=== PATIENT | female | born 1945 | race Asian ===

== ENCOUNTER → 2019-03-12 | Outpatient (CLI) | payer MEDICARE, BC | END | disposition home or self-care (01) | LOC: CFH 13:57 | PROVIDERS: ATTEND Nurse Practitioner Primary Care | DX: Z13.820 Encounter for screening for osteoporosis (principal); M85.88 Other specified disorders of bone density and structure, other site; E03.9 Hypothyroidism, unspecified | CPT/HCPCS: 76536; 77080 ==

== ENCOUNTER → 2019-11-01 | Outpatient (CLI) | payer MEDICARE, BC | END | disposition home or self-care (01) | LOC: CFH 08:02 | PROVIDERS: ATTEND Nurse Practitioner Primary Care | DX: M25.551 Pain in right hip (principal) ==